=== PATIENT | female | born 1955 | race African-American/Black ===

== ENCOUNTER → 2021-09-28 | Emergency (ER) | payer OTHER ==
[~2021-09-28] VITALS: Ht 162.6 cm; Wt 93.0 kg
[~2021-09-28] MED LIST: ATORVASTATIN CA10 MG PO
== END | disposition home or self-care (01) ==
LOC: ER 16:15
DX: R42 Dizziness and giddiness (principal); E11.9 Type 2 diabetes mellitus without complications; Z79.84 Long term (current) use of oral hypoglycemic drugs; I10 Essential (primary) hypertension; Z88.0 Allergy status to penicillin